=== PATIENT | female | born 2000 | race Caucasian/White ===

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

== ENCOUNTER → 2022-12-31 | Outpatient (CLI) | payer OTHER ==
[2023-01-01 10:31] LABS: Stool Occult Bld Immuno 1 Negative (NEGATIVE)
== END | disposition home or self-care (01) ==
LOC: LAB SHORT 12:30 → LAB 12:30 → LAB FUT 01-01 13:15 → EDSTATUS 01-01 13:15
PROVIDERS: Family Medicine
DX: R14.0 Abdominal distension (gaseous) (principal)
CPT/HCPCS: 82274